=== PATIENT | male | born 1950 | race Caucasian/White ===

== ENCOUNTER 2018-08-23 23:42 | Inpatient (IN) | payer OTHER, MEDICARE ==
[~2018-08-23] VITALS: Ht 182.9 cm; Wt 99.1 kg
[~2018-08-23 23:42] MED LIST: ALBU8HFA2 INH; ASPI81EC PO; AZIT250 PO; Abilify2 MG PO; CLINGEL TOP; CYCL10 PO; DOXE25 PO; FURO40 PO; LAVAP17G PO; METH10 PO; OXYC5 PO; PRAZ2 PO; PREG100 PO; SILD50TA PO; TESTOSTERONE INJECT; TRAM50 PO; TRAZ50 PO; Ultram50 MG PO; VENL150ER PO; VENL75ER PO; ZOLP10 PO
[2018-08-24 01:36] LABS: BASOPHILS ABSOLUTE AUTO 0.08 K/mm3 (0.00-0.23); BASOPHILS PERCENT AUTO 1 % (0-2); EOSINOPHILS ABSOLUTE AUTO 0.19 K/mm3 (0.00-0.68); EOSINOPHILS PERCENT AUTO 2 % (0-6); Hematocrit 45.7 % (37.0-53.0); Hemoglobin 15.4 g/dL (13.5-17.5); IMMATURE GRAN ABSOLUTE AUTO 0.03 K/mm3 (0.00-0.10); IMMATURE GRAN PERCENT AUTO 0 % (0-1); LYMPHOCYTES ABSOLUTE AUTO 2.98 K/mm3 (0.84-5.20); LYMPHOCYTES PERCENT AUTO 26 % (21-46); MONOCYTES ABSOLUTE AUTO 1.06 K/mm3 (0.16-1.47); MONOCYTES PERCENT AUTO 9 % (4-13); Mean Corpuscular HGB 32.4 pg (26.0-34.0); Mean Corpuscular HGB Conc 33.7 g/dL (31.5-36.5); Mean Corpuscular Volume 96 fL (80-100); Mean Platelet Volume 11.6 fL (9.1-12.4); NEUTROPHILS ABSOLUTE AUTO 7.24 K/mm3 (1.96-9.15); NEUTROPHILS PERCENT AUTO 63 % (41-73); Platelet Count 196 K/mm3 (150-400); RDW Coefficient Variation 12.3 % (11.7-14.2); RDW Standard Deviation 44.1 fL (35.1-46.3); Red Blood Cell Count 4.75 M/mm3 (4.30-5.90); White Blood Cell Count 11.58 K/mm3 (4.00-11.30)
[2018-08-24 01:54] LABS: Alanine Aminotransfer (ALT/SGP 59 U/L (12-78); Albumin, Blood 3.7 g/dL (3.4-5.0); Albumin/Globulin Ratio 0.9 (0.8-1.8); Alk Phos 66 U/L (50-136); Anion Gap 9 mmol/L (6-16); Aspartate Aminotrans (AST/SGOT 63 U/L (12-37); Bilirubin, Total 1.6 mg/dL (0.1-1.0); Blood Urea Nitrogen 13 mg/dL (8-24); Bun/Creatinine Ratio 16.5 (12.0-20.0); CO2, Blood 29 mmol/L (21-32); Calcium, Blood 8.5 mg/dL (8.5-10.1); Chloride, Blood 100 mmol/L (98-108); Creatinine, Blood 0.79 mg/dL (0.60-1.20); Glomerular Filtration Rate >60 (60-); Glucose, Blood 104 mg/dL (70-99); Sodium, Blood 138 mmol/L (136-145); Total Protein, Blood 7.7 g/dL (6.4-8.2)
[2018-08-24] MEDS ORDERED: ACET325 PO (10:36)
[2018-08-24] MEDS ORDERED: ALBU90OI INH (10:37)
[2018-08-24] MEDS ORDERED: CAVERJECT (10:40)
[2018-08-24] MEDS ORDERED: BIOTENE MOIST44.3 ML MT (10:41)
[2018-08-24] MEDS ORDERED: Tears Again15 ML BOTHEYES (10:42)
[2018-08-24] MEDS ORDERED: VITAMIN D-32000 UNIT PO (10:43)
[2018-08-24] MEDS ORDERED: CLOTRIMAZOLE AF1510 (10:47)
[2018-08-24] MEDS ORDERED: CYCL10 PO (10:49)
[2018-08-24] MEDS ORDERED: DULO30 PO (10:51)
[2018-08-24] MEDS ORDERED: HYDCHL25 PO (10:53)
[2018-08-24] MEDS ORDERED: HYDR454TO TOP (10:54)
[2018-08-24] MEDS ORDERED: Atarax10 MG PO (10:57)
[2018-08-24] MEDS ORDERED: Hydroxyzine HCl50 MG PO (10:58)
[2018-08-24] MEDS ORDERED: LIDO700A20 TOP (11:00)
[2018-08-24] MEDS ORDERED: GAVILAX17 GM PO (11:10)
[2018-08-24] MEDS ORDERED: PREG200 PO (11:11)
[2018-08-24] MEDS ORDERED: PRAZ2 PO (11:11)
[2018-08-24] MEDS ORDERED: QUET25 PO (11:12)
[2018-08-24] MEDS ORDERED: VARE1 PO (11:14)
[2018-08-24 14:38] LABS: Hematocrit 42.8 % (37.0-53.0); Hemoglobin 14.3 g/dL (13.5-17.5); Mean Corpuscular HGB 32.6 pg (26.0-34.0); Mean Corpuscular HGB Conc 33.4 g/dL (31.5-36.5); Mean Corpuscular Volume 98 fL (80-100); Mean Platelet Volume 11.7 fL (9.1-12.4); Platelet Count 147 K/mm3 (150-400); RDW Coefficient Variation 12.3 % (11.7-14.2); RDW Standard Deviation 44.6 fL (35.1-46.3); Red Blood Cell Count 4.39 M/mm3 (4.30-5.90); White Blood Cell Count 7.54 K/mm3 (4.00-11.30)
[2018-08-24 15:06] LABS: Alanine Aminotransfer (ALT/SGP 48 U/L (12-78); Albumin, Blood 2.8 g/dL (3.4-5.0); Albumin/Globulin Ratio 0.8 (0.8-1.8); Alk Phos 54 U/L (50-136); Anion Gap 9 mmol/L (6-16); Aspartate Aminotrans (AST/SGOT 39 U/L (12-37); Blood Urea Nitrogen 14 mg/dL (8-24); Bun/Creatinine Ratio 22.7 (12.0-20.0); CO2, Blood 25 mmol/L (21-32); Calcium, Blood 7.7 mg/dL (8.5-10.1); Chloride, Blood 106 mmol/L (98-108); Creatinine, Blood 0.62 mg/dL (0.60-1.20); Globulin, Blood 3.7 g/dL (2.2-4.0); Glomerular Filtration Rate >60 (60-); Glucose, Blood 155 mg/dL (70-99); Potassium, Blood 3.4 mmol/L (3.5-5.5); Sodium, Blood 140 mmol/L (136-145); Total Protein, Blood 6.5 g/dL (6.4-8.2)
[2018-08-25 05:27] LABS: Vancomycin, Trough 10.5 ug/mL (5.0-10.0)
[2018-08-26 05:26] LABS: Hematocrit 42.1 % (37.0-53.0); Hemoglobin 13.6 g/dL (13.5-17.5); Mean Corpuscular HGB 32.6 pg (26.0-34.0); Mean Corpuscular HGB Conc 32.3 g/dL (31.5-36.5); Platelet Count 149 K/mm3 (150-400); RDW Coefficient Variation 12.5 % (11.7-14.2); RDW Standard Deviation 46.7 fL (35.1-46.3); Red Blood Cell Count 4.17 M/mm3 (4.30-5.90); White Blood Cell Count 8.22 K/mm3 (4.00-11.30)
[2018-08-26 05:33] LABS: Mean Corpuscular Volume 101 fL (80-100)
[2018-08-26 05:42] LABS: Anion Gap 7 mmol/L (6-16); Blood Urea Nitrogen 17 mg/dL (8-24); Bun/Creatinine Ratio 26.1 (12.0-20.0); CO2, Blood 23 mmol/L (21-32); Calcium, Blood 7.8 mg/dL (8.5-10.1); Chloride, Blood 110 mmol/L (98-108); Creatinine, Blood 0.65 mg/dL (0.60-1.20); Glomerular Filtration Rate >60 (60-); Glucose, Blood 128 mg/dL (70-99); Potassium, Blood 3.8 mmol/L (3.5-5.5); Sodium, Blood 140 mmol/L (136-145); Vancomycin, Trough 17.1 ug/mL (5.0-10.0)
[2018-08-27 06:04] LABS: Vancomycin, Trough 16.2 ug/mL (5.0-10.0)
[2018-08-29 06:18] LABS: Vancomycin, Trough 20.6 ug/mL (5.0-10.0)
[2018-08-30 17:26] LABS: Creatinine, Blood 0.81 mg/dL (0.60-1.20); Vancomycin, Trough 16.7 ug/mL (5.0-10.0)
[2018-08-31] MEDS ORDERED: TRAM50 PO (12:07)
== END 2018-08-31 14:10 | disposition home or self-care (01) | DRG 603 ==
LOC: ER 23:42 → MEDS 08-24 01:18 → ER 08-24 01:45 → MEDS 08-24 02:24 → ENPENDDIS 08-31 14:10
PROVIDERS: Emergency Medicine; Internal Medicine
PROC: 0H9GXZX Drainage of Left Hand Skin, External Approach, Diagnostic (ICD-10-PCS; principal; 2018-08-29)
DX: L03.114 Cellulitis of left upper limb (principal); L02.512 Cutaneous abscess of left hand; F32.9 Major depressive disorder, single episode, unspecified; B19.20 Unspecified viral hepatitis C without hepatic coma; F17.210 Nicotine dependence, cigarettes, uncomplicated; F43.10 Post-traumatic stress disorder, unspecified; F15.10 Other stimulant abuse, uncomplicated; E87.6 Hypokalemia
CPT/HCPCS: 36415; 73201; 76882; 80048; 80053; 80202; 82565; 83605; 85025; 85027; 87040; 87070; 87075; 87205; 90471; 90714; 93306; 94640; 94760; 96365; 96375; 99284-25; J0295; J1650; J1885; J2543; J2930; J3010; J3370; J3480; J7030; J7050; Q0177; Q9967

== ENCOUNTER 2019-08-13 11:34 | Emergency (ER) | payer OTHER ==
[~2019-08-13] VITALS: Ht 188 cm; Wt 101.6 kg
[~2019-08-13 11:34] MED LIST changes: +ACET325 PO; +ALBU90OI INH; +Atarax10 MG PO; +BIOTENE MOIST44.3 ML MT; +CAVERJECT; +CLOTRIMAZOLE AF1510; +DULO30 PO; +GAVILAX17 GM PO; +HYDCHL25 PO; +HYDR454TO TOP; +Hydroxyzine HCl50 MG PO; +LIDO700A20 TOP; +PREG200 PO; +QUET25 PO; +Tears Again15 ML BOTHEYES; +VARE1 PO; +VITAMIN D-32000 UNIT PO
== END 2019-08-13 14:32 | disposition home or self-care (01) ==
LOC: ER 11:34
DX: M75.32 Calcific tendinitis of left shoulder (principal); F32.9 Major depressive disorder, single episode, unspecified; G89.29 Other chronic pain; F17.200 Nicotine dependence, unspecified, uncomplicated; Z91.013 Allergy to seafood; Z88.1 Allergy status to other antibiotic agents; Z88.8 Allergy status to other drugs, medicaments and biological substances; Z79.899 Other long term (current) drug therapy
CPT/HCPCS: 20610; 73030; 99283-25; J3301

== ENCOUNTER 2019-09-14 16:37 | Emergency (ER) | payer OTHER ==
[~2019-09-14] VITALS: Ht 190.5 cm; Wt 102.1 kg
[2019-09-14] MEDS ORDERED: MELA3 PO (16:52)
[2019-09-14 17:40] LABS: Source, Urine Clean Catch
[2019-09-14 17:44] LABS: Bilirubin, Urine Neg (Neg); Blood, Urine Neg (Neg); Glucose Qualitative, Urine Neg (Neg); Ketones, Urine 1+ (Neg); Leukocyte Esterase, Urine 1+ (Neg); Nitrite, Urine Neg (Neg); Protein, Urine 1+ (Neg); Specific Gravity, Urine 1.015 (1.003-1.022); Urobilinogen, Urine 1+ (Normal)
[2019-09-14 17:44] LABS: BASOPHILS ABSOLUTE AUTO 0.06 K/mm3 (0.00-0.23); BASOPHILS PERCENT AUTO 1 % (0-2); EOSINOPHILS ABSOLUTE AUTO 0.19 K/mm3 (0.00-0.68); EOSINOPHILS PERCENT AUTO 3 % (0-6); Hemoglobin 15.7 g/dL (13.5-17.5); IMMATURE GRAN ABSOLUTE AUTO 0.02 K/mm3 (0.00-0.10); IMMATURE GRAN PERCENT AUTO 0 % (0-1); LYMPHOCYTES ABSOLUTE AUTO 2.44 K/mm3 (0.84-5.20); LYMPHOCYTES PERCENT AUTO 32 % (21-46); MONOCYTES ABSOLUTE AUTO 0.66 K/mm3 (0.16-1.47); MONOCYTES PERCENT AUTO 9 % (4-13); Mean Corpuscular HGB 33.1 pg (26.0-34.0); Mean Corpuscular HGB Conc 34.1 g/dL (31.5-36.5); Mean Corpuscular Volume 97 fL (80-100); NEUTROPHILS ABSOLUTE AUTO 4.25 K/mm3 (1.96-9.15); NEUTROPHILS PERCENT AUTO 56 % (41-73); Platelet Count 246 K/mm3 (150-400); RDW Coefficient Variation 12.9 % (11.7-14.2); RDW Standard Deviation 46.2 fL (35.1-46.3); Red Blood Cell Count 4.75 M/mm3 (4.30-5.90); White Blood Cell Count 7.62 K/mm3 (4.00-11.30)
[2019-09-14 17:54] LABS: U Cannabinoids Screen DETECTED
[2019-09-14 17:55] LABS: Appearance, Urine Clear (Clear); Color, Urine Yellow (P-Yellow); U Amphetamine Screen Not Detected; U Barbituate Screen Not Detected; U Benzodiazapine Screen Not Detected; U Buprenorphine Screen Not Detected; U Cocaine Screen Not Detected; U Methadone Screen Not Detected; U Methamphetamine Screen Not Detected; U Opiates Screen Not Detected; U Oxycodone Screen Not Detected; U Phencyclidine Screen Not Detected; U Propoxyphene Screen Not Detected
[2019-09-14 17:56] LABS: Bacteria Few /hpf; Mucus Light (0-Heavy); Red Blood Cells, Urine 0-2 /hpf (0-2); Squamous Epithelial Cells Not Seen /hpf (Few)
[2019-09-14 17:59] LABS: Alanine Aminotransfer (ALT/SGP 68 U/L (12-78); Albumin, Blood 3.8 g/dL (3.4-5.0); Albumin/Globulin Ratio 1.1 (0.8-1.8); Alk Phos 74 U/L (50-136); Anion Gap 8 mmol/L (6-16); Aspartate Aminotrans (AST/SGOT 33 U/L (12-37); Bilirubin, Total 0.6 mg/dL (0.1-1.0); Blood Urea Nitrogen 23 mg/dL (8-24); Bun/Creatinine Ratio 30.2 (12.0-20.0); CO2, Blood 21 mmol/L (21-32); Calcium, Blood 8.2 mg/dL (8.5-10.1); Chloride, Blood 108 mmol/L (98-108); Creatinine, Blood 0.76 mg/dL (0.60-1.20); Globulin, Blood 3.5 g/dL (2.2-4.0); Glomerular Filtration Rate >60 (60-); Glucose, Blood 92 mg/dL (70-99); Magnesium, Blood 2.2 mg/dL (1.6-2.4); Potassium, Blood 4.1 mmol/L (3.5-5.5); Sodium, Blood 137 mmol/L (136-145); Total Protein, Blood 7.3 g/dL (6.4-8.2)
== END 2019-09-14 19:08 | disposition home or self-care (01) ==
LOC: ER 16:37
PROVIDERS: Emergency Medicine
DX: R10.9 Unspecified abdominal pain (principal); Z88.5 Allergy status to narcotic agent; Z88.8 Allergy status to other drugs, medicaments and biological substances; Z91.013 Allergy to seafood; Z88.1 Allergy status to other antibiotic agents; Z79.899 Other long term (current) drug therapy; F32.9 Major depressive disorder, single episode, unspecified; F43.10 Post-traumatic stress disorder, unspecified; F17.210 Nicotine dependence, cigarettes, uncomplicated
CPT/HCPCS: 36415; 74176; 80053; 81001; 83735; 85025; 87086; 99284-25

== ENCOUNTER 2020-01-06 12:19 | Emergency (ER) | payer OTHER, MEDICARE ==
[~2020-01-06] VITALS: Ht 190.5 cm; Wt 102.1 kg
[~2020-01-06 12:19] MED LIST changes: +MELA3 PO
[2020-01-06 13:00] LABS: BASOPHILS ABSOLUTE AUTO 0.08 K/mm3 (0.00-0.23); BASOPHILS PERCENT AUTO 1 % (0-2); EOSINOPHILS ABSOLUTE AUTO 0.18 K/mm3 (0.00-0.68); EOSINOPHILS PERCENT AUTO 3 % (0-6); Hematocrit 53.3 % (37.0-53.0); Hemoglobin 18.1 g/dL (13.5-17.5); IMMATURE GRAN PERCENT AUTO 0 % (0-1); LYMPHOCYTES ABSOLUTE AUTO 2.49 K/mm3 (0.84-5.20); LYMPHOCYTES PERCENT AUTO 41 % (21-46); MONOCYTES PERCENT AUTO 10 % (4-13); Mean Corpuscular HGB 32.6 pg (26.0-34.0); Mean Corpuscular Volume 96 fL (80-100); Mean Platelet Volume 11.7 fL (9.1-12.4); NEUTROPHILS ABSOLUTE AUTO 2.74 K/mm3 (1.96-9.15); NEUTROPHILS PERCENT AUTO 45 % (41-73); Platelet Count 239 K/mm3 (150-400); RDW Coefficient Variation 13.2 % (11.7-14.2); RDW Standard Deviation 47.1 fL (35.1-46.3); Red Blood Cell Count 5.56 M/mm3 (4.30-5.90); White Blood Cell Count 6.09 K/mm3 (4.00-11.30)
[2020-01-06 13:19] LABS: Alanine Aminotransfer (ALT/SGP 66 U/L (12-78); Albumin, Blood 3.7 g/dL (3.4-5.0); Anion Gap 5 mmol/L (6-16); Aspartate Aminotrans (AST/SGOT 59 U/L (12-37); Bilirubin, Total 0.6 mg/dL (0.1-1.0); Blood Urea Nitrogen 21 mg/dL (8-24); CO2, Blood 22 mmol/L (21-32); Calcium, Blood 8.9 mg/dL (8.5-10.1); Chloride, Blood 112 mmol/L (98-108); Globulin, Blood 3.7 g/dL (2.2-4.0); Glucose, Blood 96 mg/dL (70-99); Potassium, Blood 4.5 mmol/L (3.5-5.5); Sodium, Blood 139 mmol/L (136-145); Total Protein, Blood 7.4 g/dL (6.4-8.2)
[2020-01-06 13:23] LABS: Alk Phos 74 U/L (50-136); Creatinine, Blood 0.64 mg/dL (0.60-1.20); Glomerular Filtration Rate >60 (60-); Troponin I <0.015 ng/mL (0.000-0.040)
[2020-01-06] MEDS ORDERED: Prednisone20 MG PO (14:47)
[2020-01-06] MEDS ORDERED: TESSALON PERLE100 MG PO (14:47)
[2020-01-06] MEDS ORDERED: GUAI600T33 PO (14:47)
== END 2020-01-06 15:07 | disposition home or self-care (01) ==
LOC: ER 12:19
PROVIDERS: Emergency Medicine
DX: J40 Bronchitis, not specified as acute or chronic (principal); I48.91 Unspecified atrial fibrillation; F32.9 Major depressive disorder, single episode, unspecified; F17.200 Nicotine dependence, unspecified, uncomplicated; Z88.8 Allergy status to other drugs, medicaments and biological substances; Z91.013 Allergy to seafood; Z79.899 Other long term (current) drug therapy; Z79.51 Long term (current) use of inhaled steroids
CPT/HCPCS: 36415; 71046; 80053; 84484; 85025; 93005; 93010; 99284-25

== ENCOUNTER 2021-02-10 11:34 | Emergency (ER) | payer OTHER, MEDICARE ==
[~2021-02-10] VITALS: Ht 190.5 cm; Wt 109.3 kg
[~2021-02-10 11:34] MED LIST changes: +GUAI600T33 PO; +METO25ER PO; +OMEP20ER PO; +Prednisone20 MG PO; +TESSALON PERLE100 MG PO; +XARELTO20 MG PO
[2021-02-10] MEDS ORDERED: HYDHCL25 PO (11:55)
[2021-02-10] MEDS ORDERED: PRAZ5 PO (11:55)
[2021-02-10] MEDS ORDERED: LIDO700A20 TOP (12:17)
== END 2021-02-10 12:34 | disposition home or self-care (01) ==
LOC: ER 11:34
DX: S29.011A Strain of muscle and tendon of front wall of thorax, initial encounter (principal); F17.210 Nicotine dependence, cigarettes, uncomplicated; Z79.01 Long term (current) use of anticoagulants; Z79.899 Other long term (current) drug therapy; Z88.8 Allergy status to other drugs, medicaments and biological substances; Z88.5 Allergy status to narcotic agent; Z88.1 Allergy status to other antibiotic agents; Z91.013 Allergy to seafood; X58.XXXA Exposure to other specified factors, initial encounter
CPT/HCPCS: 71046; 99283-25

== ENCOUNTER 2021-04-12 10:59 | Emergency (ER) | payer MEDICARE, OTHER ==
[~2021-04-12] VITALS: Ht 188 cm; Wt 109.3 kg
[~2021-04-12 10:59] MED LIST changes: +HYDHCL25 PO; +PRAZ5 PO
[2021-04-12] MEDS ORDERED: CYCL10 PO (13:47)
[2021-04-12] MEDS ORDERED: IBUP600 PO (13:47)
== END 2021-04-12 14:16 | disposition home or self-care (01) ==
LOC: ER 10:59
DX: M54.5 Low back pain (principal); F17.210 Nicotine dependence, cigarettes, uncomplicated; Z88.1 Allergy status to other antibiotic agents; Z88.8 Allergy status to other drugs, medicaments and biological substances; Z79.899 Other long term (current) drug therapy
CPT/HCPCS: 72100; 96372; 99283-25; A9270; J1885

== ENCOUNTER 2021-05-13 12:13 | Emergency (ER) | payer OTHER, MEDICARE ==
[~2021-05-13] VITALS: Ht 188 cm; Wt 109.3 kg
[~2021-05-13 12:13] MED LIST changes: +IBUP600 PO
[2021-05-13] MEDS ORDERED: CYCL10 PO (14:38)
[2021-05-13] MEDS ORDERED: LIDO700A20 TOP (14:38)
== END 2021-05-13 14:45 | disposition home or self-care (01) ==
LOC: ER 12:13
DX: S39.012A Strain of muscle, fascia and tendon of lower back, initial encounter (principal); F17.210 Nicotine dependence, cigarettes, uncomplicated; Z88.5 Allergy status to narcotic agent; Z88.8 Allergy status to other drugs, medicaments and biological substances; Z88.6 Allergy status to analgesic agent; X50.9XXA Other and unspecified overexertion or strenuous movements or postures, initial encounter
CPT/HCPCS: 96374; 99283-25; A9270; J1885

== ENCOUNTER 2022-04-17 09:23 | Emergency (ER) | payer OTHER ==
[~2022-04-17] VITALS: Ht 188 cm; Wt 102.1 kg
[2022-04-17 09:49] LABS: BASOPHILS ABSOLUTE AUTO 0.06 K/mm3 (0.00-0.23); BASOPHILS PERCENT AUTO 1 % (0-2); EOSINOPHILS ABSOLUTE AUTO 0.12 K/mm3 (0.00-0.68); EOSINOPHILS PERCENT AUTO 2 % (0-6); Hematocrit 48.2 % (37.0-53.0); Hemoglobin 16.6 g/dL (13.5-17.5); IMMATURE GRAN ABSOLUTE AUTO 0.02 K/mm3 (0.00-0.10); IMMATURE GRAN PERCENT AUTO 0 % (0-1); LYMPHOCYTES ABSOLUTE AUTO 3.06 K/mm3 (0.84-5.20); LYMPHOCYTES PERCENT AUTO 39 % (21-46); MONOCYTES ABSOLUTE AUTO 0.71 K/mm3 (0.16-1.47); MONOCYTES PERCENT AUTO 9 % (4-13); Mean Corpuscular HGB 31.6 pg (26.0-34.0); Mean Corpuscular HGB Conc 34.4 g/dL (31.5-36.5); Mean Corpuscular Volume 92 fL (80-100); Mean Platelet Volume 11.4 fL (9.1-12.4); NEUTROPHILS ABSOLUTE AUTO 3.96 K/mm3 (1.96-9.15); NEUTROPHILS PERCENT AUTO 50 % (41-73); Platelet Count 228 K/mm3 (150-400); RDW Standard Deviation 47.7 fL (35.1-46.3); Red Blood Cell Count 5.25 M/mm3 (4.30-5.90); White Blood Cell Count 7.93 K/mm3 (4.00-11.30)
[2022-04-17 10:10] LABS: Albumin, Blood 4.2 g/dL (3.4-5.0); Albumin/Globulin Ratio 1.1 (0.8-1.8); Bilirubin, Total 0.6 mg/dL (0.1-1.0); Bun/Creatinine Ratio 16.1 (12.0-20.0); Calcium, Blood 9.3 mg/dL (8.5-10.1); Creatinine, Blood 0.81 mg/dL (0.60-1.20); Globulin, Blood 3.8 g/dL (2.2-4.0); Potassium, Blood 3.7 mmol/L (3.5-5.5)
[2022-04-17] MEDS ORDERED: Prednisone20 MG PO (11:50)
[2022-04-17] MEDS ORDERED: Zithromax250 MG PO (11:50)
== END 2022-04-17 12:08 | disposition home or self-care (01) ==
LOC: ER 09:23
PROVIDERS: Emergency Medicine
DX: J44.1 Chronic obstructive pulmonary disease with (acute) exacerbation (principal); F43.10 Post-traumatic stress disorder, unspecified; I10 Essential (primary) hypertension; Z88.8 Allergy status to other drugs, medicaments and biological substances; Z88.5 Allergy status to narcotic agent; Z88.1 Allergy status to other antibiotic agents; Z79.899 Other long term (current) drug therapy; F17.210 Nicotine dependence, cigarettes, uncomplicated
CPT/HCPCS: 71045; 80053; 83880; 84484; 85025; 93005; 93010; 99285-25; A9270

== ENCOUNTER 2022-12-09 23:47 | Emergency (ER) | payer OTHER ==
[~2022-12-09] VITALS: Ht 188 cm; Wt 102.1 kg
[~2022-12-09 23:47] MED LIST changes: +Zithromax250 MG PO
[2022-12-09] MEDS ORDERED: Prednisone20 MG PO (23:56)
== END 2022-12-10 01:40 | disposition home or self-care (01) ==
LOC: ER 23:47
DX: J44.1 Chronic obstructive pulmonary disease with (acute) exacerbation (principal); J06.9 Acute upper respiratory infection, unspecified; I10 Essential (primary) hypertension; F17.210 Nicotine dependence, cigarettes, uncomplicated; Z88.8 Allergy status to other drugs, medicaments and biological substances; Z88.5 Allergy status to narcotic agent; Z79.899 Other long term (current) drug therapy
CPT/HCPCS: J7512

== ENCOUNTER 2023-02-12 02:58 | Emergency (ER) | payer OTHER ==
[~2023-02-12] VITALS: Ht 188 cm; Wt 110.7 kg
== END 2023-02-12 03:41 | disposition home or self-care (01) ==
LOC: ER 02:58
DX: F45.8 Other somatoform disorders (principal); J44.9 Chronic obstructive pulmonary disease, unspecified; F17.210 Nicotine dependence, cigarettes, uncomplicated; Z88.5 Allergy status to narcotic agent; Z88.8 Allergy status to other drugs, medicaments and biological substances; Z79.899 Other long term (current) drug therapy; Z79.02 Long term (current) use of antithrombotics/antiplatelets
CPT/HCPCS: 70360; 71045; 99283-25; A9270

== ENCOUNTER → 2023-06-25 | Outpatient (CLI) | payer OTHER ==
[2023-06-25 14:09] LABS: Appearance, Urine Clear (Clear); Bilirubin, Urine Neg (Neg); Blood, Urine 1+ (Neg); Color, Urine Yellow (P-Yellow); Glucose Qualitative, Urine Neg (Neg); Ketones, Urine Neg (Neg); Leukocyte Esterase, Urine Neg (Neg); Nitrite, Urine Neg (Neg); Protein, Urine Neg (Neg); Urobilinogen, Urine NORM (Normal)
[2023-06-25 14:26] LABS: Bacteria Few /hpf; Squamous Epithelial Cells Rare /hpf (Few); White Blood Cells, Urine 0-2 /hpf (0-5)
== END | disposition home or self-care (01) ==
LOC: LAB 11:00 → LAB SHORT 11:00
PROVIDERS: Radiology Therapeutic Radiology
DX: C61 Malignant neoplasm of prostate (principal); R31.9 Hematuria, unspecified
CPT/HCPCS: 81001

== ENCOUNTER 2023-07-07 08:51 | Emergency (ER) | payer OTHER ==
[~2023-07-07] VITALS: Ht 188 cm; Wt 108.0 kg
[2023-07-07 09:13] LABS: BASOPHILS ABSOLUTE AUTO 0.02 K/mm3 (0.00-0.23); BASOPHILS PERCENT AUTO 0 % (0-2); EOSINOPHILS ABSOLUTE AUTO 0.09 K/mm3 (0.00-0.68); EOSINOPHILS PERCENT AUTO 2 % (0-6); Hematocrit 43.6 % (37.0-53.0); Hemoglobin 14.9 g/dL (13.5-17.5); IMMATURE GRAN ABSOLUTE AUTO 0.02 K/mm3 (0.00-0.10); IMMATURE GRAN PERCENT AUTO 0 % (0-1); LYMPHOCYTES ABSOLUTE AUTO 0.36 K/mm3 (0.84-5.20); LYMPHOCYTES PERCENT AUTO 7 % (21-46); MONOCYTES ABSOLUTE AUTO 0.67 K/mm3 (0.16-1.47); MONOCYTES PERCENT AUTO 13 % (4-13); Mean Corpuscular HGB 31.4 pg (26.0-34.0); Mean Corpuscular HGB Conc 34.2 g/dL (31.5-36.5); Mean Corpuscular Volume 92 fL (80-100); Mean Platelet Volume 10.2 fL (9.1-12.4); NEUTROPHILS ABSOLUTE AUTO 4.16 K/mm3 (1.96-9.15); NEUTROPHILS PERCENT AUTO 78 % (41-73); Platelet Count 192 K/mm3 (150-400); RDW Coefficient Variation 14.1 % (11.7-14.2); RDW Standard Deviation 47.6 fL (35.1-46.3); Red Blood Cell Count 4.75 M/mm3 (4.30-5.90); White Blood Cell Count 5.32 K/mm3 (4.00-11.30)
[2023-07-07 09:25] LABS: Albumin, Blood 3.1 g/dL (3.4-5.0); Albumin/Globulin Ratio 0.9 (0.8-1.8); Bilirubin, Total 0.3 mg/dL (0.1-1.0); Bun/Creatinine Ratio 16.4 (12.0-20.0); Calcium, Blood 8.3 mg/dL (8.5-10.1); Creatinine, Blood 0.97 mg/dL (0.60-1.20); Globulin, Blood 3.3 g/dL (2.2-4.0); Total Protein, Blood 6.4 g/dL (6.4-8.2)
[2023-07-07 09:32] LABS: BAND PERCENT MAN 1 % (0-8); BASOPHILS PERCENT MAN 0 % (0-2); EOSINOPHILS PERCENT MAN 2 % (0-6); LYMPHOCYTES ABSOLUTE MAN 0.37 K/mm3 (0.84-5.20); LYMPHOCYTES PERCENT MAN 7 % (21-46); MONOCYTES ABSOLUTE MAN 0.31 K/mm3 (0.16-1.47); MONOCYTES PERCENT MAN 6 % (4-13); NEUTROPHILS ABSOLUTE MAN 4.52 K/mm3 (1.96-9.15); SEG NEUTROPHILS PERCENT MAN 84 % (41-73); TOTAL CELLS COUNTED 100
[2023-07-07 10:53] VITALS: BP 116/78
== END 2023-07-07 10:53 | disposition home or self-care (01) ==
LOC: ER 08:51
PROVIDERS: Emergency Medicine
DX: K62.5 Hemorrhage of anus and rectum (principal); F17.210 Nicotine dependence, cigarettes, uncomplicated
CPT/HCPCS: 80053; 82272; 85025; 86850; 86900; 86901; 93005; 93010; 99284-25

== ENCOUNTER 2024-08-25 09:32 | Inpatient (IN) | payer OTHER ==
[~2024-08-25] VITALS: Ht 188 cm; Wt 91.3 kg
[~2024-08-25 09:32] MED LIST changes: +METO25 PO
[2024-08-25] MEDS ORDERED: NS 1,000 ML IV SCH ×2 (10:00→12:35)
[2024-08-25] MEDS ORDERED: Pantoprazole Sodium 40 MG Injection IV ONE (10:00)
[2024-08-25 10:06] LABS: BASOPHILS ABSOLUTE AUTO 0.05 K/mm3 (0.00-0.23); BASOPHILS PERCENT AUTO 1 % (0-2); EOSINOPHILS ABSOLUTE AUTO 0.19 K/mm3 (0.00-0.68); EOSINOPHILS PERCENT AUTO 4 % (0-6); Hematocrit 38.7 % (37.0-53.0); Hemoglobin 12.6 g/dL (13.5-17.5); IMMATURE GRAN ABSOLUTE AUTO 0.02 K/mm3 (0.00-0.10); IMMATURE GRAN PERCENT AUTO 0 % (0-1); LYMPHOCYTES ABSOLUTE AUTO 0.93 K/mm3 (0.84-5.20); LYMPHOCYTES PERCENT AUTO 20 % (21-46); MONOCYTES ABSOLUTE AUTO 0.48 K/mm3 (0.16-1.47); MONOCYTES PERCENT AUTO 10 % (4-13); Mean Corpuscular HGB Conc 32.6 g/dL (31.5-36.5); Mean Corpuscular Volume 95 fL (80-100); Mean Platelet Volume 10.1 fL (9.1-12.4); NEUTROPHILS ABSOLUTE AUTO 3.06 K/mm3 (1.96-9.15); NEUTROPHILS PERCENT AUTO 65 % (41-73); Platelet Count 256 K/mm3 (150-400); RDW Coefficient Variation 14.2 % (11.7-14.2); RDW Standard Deviation 50.3 fL (35.1-46.3); Red Blood Cell Count 4.07 M/mm3 (4.30-5.90); White Blood Cell Count 4.73 K/mm3 (4.00-11.30)
[2024-08-25] MEDS ORDERED: ACET325 PO (10:07)
[2024-08-25] MEDS ORDERED: LIDO700A20 TOP (10:08)
[2024-08-25] MEDS ORDERED: CYCL10 PO (10:08)
[2024-08-25] MEDS ORDERED: MEGE40T PO (10:09)
[2024-08-25] MEDS ORDERED: SIME80CH PO (10:09)
[2024-08-25] MEDS ORDERED: ALFU10 PO (10:09)
[2024-08-25] MEDS ORDERED: VENLAFAXINE HCL75 M1 PO (10:10)
[2024-08-25] MEDS ORDERED: MIRT15 PO (10:10)
[2024-08-25] MEDS ORDERED: ABILIFY MYCITE10 M2 PO (10:10)
[2024-08-25] MEDS ORDERED: Atarax10 MG PO (10:11)
[2024-08-25 10:24] LABS: International Normalized Ratio 0.99; Prothrombin Time Results 10.6 Sec (9.7-11.5)
[2024-08-25 10:52] LABS: Albumin, Blood 3.4 g/dL (3.4-5.0); Bilirubin, Total 0.2 mg/dL (0.1-1.0); Bun/Creatinine Ratio 32.3 (12.0-20.0); Calcium, Blood 8.9 mg/dL (8.5-10.1); Creatinine, Blood 0.81 mg/dL (0.60-1.20); Globulin, Blood 3.3 g/dL (2.2-4.0); Potassium, Blood 4.4 mmol/L (3.5-5.5); Total Protein, Blood 6.7 g/dL (6.4-8.2)
[2024-08-25 11:01] LABS: Source, Urine Clean Catch
[2024-08-25 11:17] LABS: Appearance, Urine Clear (Clear); Bilirubin, Urine Neg (Neg); Blood, Urine Neg (Neg); Color, Urine Yellow (P-Yellow); Glucose Qualitative, Urine Neg (Neg); Ketones, Urine Neg (Neg); Leukocyte Esterase, Urine Neg (Neg); Nitrite, Urine Neg (Neg); Protein, Urine Neg (Neg); Specific Gravity, Urine 1.015 (1.003-1.022); Urobilinogen, Urine NORM (Normal)
[2024-08-25] MEDS ORDERED: FLU VACC TS2024-25(6MOS UP)/PF 45 MCG/0.5 ML SYRINGE IM SCH (12:35)
[2024-08-25] MEDS ORDERED: Acetaminophen 325 MG TABLET PO PRN (12:35)
[2024-08-25] MEDS ORDERED: Ondansetron HCl 2 MG / ML 2ML Vial IV PRN (12:35)
[2024-08-25] MEDS ORDERED: LORazepam 0.5 MG Tab PO PRN (12:35)
[2024-08-25] MEDS ORDERED: Peg/Electrolytes 4,000 ML BTL PO ONE (15:00)
[2024-08-25 15:20] VITALS: BP 157/77
[2024-08-25 15:33] LABS: Hematocrit 41.9 % (37.0-53.0); Hemoglobin 13.7 g/dL (13.5-17.5); Mean Corpuscular HGB 31.1 pg (26.0-34.0); Mean Corpuscular HGB Conc 32.7 g/dL (31.5-36.5); Mean Corpuscular Volume 95 fL (80-100); Mean Platelet Volume 9.8 fL (9.1-12.4); Platelet Count 246 K/mm3 (150-400); RDW Coefficient Variation 14.4 % (11.7-14.2); RDW Standard Deviation 50.4 fL (35.1-46.3); White Blood Cell Count 4.84 K/mm3 (4.00-11.30)
[2024-08-25] MEDS ORDERED: GABA100 PO ×2 (16:39→16:40)
[2024-08-25] MEDS ORDERED: Nicotine 21 MG PATCH TOP SCH (16:55)
--- NOTE | 2024-08-25 17:52 | NUR ---
PT ADMIT FROM ER. NICOTINE PATCH ORDER OK BY. DR. MCKNIGHT. PT DENIES CHEST PAIN AND PRESSURE, DENIES SOB, R/A. GOLYTELY STARTED. PER DR. CHEN, POTENTIAL PLAN FOR COLONOSCOPY TOMORROW AFTERNOON, PT TO REMAIN ON CLEAR LIQUIDS OVERNIGHT. BLE NEUROPATHY, USE OF FWW OR SCOOTER AT BASELINE. PT ADVISED TO USE FWW. PT IS INDEPENDENT TO THE BATHROOM WITH FWW. CALLS APPROPRIATELY. REPORTS SOME CHECO RED BLOOD IN STOOL FROM RECTUM. IV FLUIDS STARTED.
[2024-08-25] MEDS ORDERED: Tamsulosin HCl 0.4 MG Cap PO SCH (18:00)
[2024-08-25 20:06] VITALS: BP 144/71
[2024-08-25] MEDS ORDERED: Famotidine 10 MG/ML 2ML Vial IV SCH (21:00)
[2024-08-25] MEDS ORDERED: Melatonin 3 MG Tab PO SCH (21:00)
[2024-08-25] MEDS ORDERED: Mirtazapine 15 MG Tab PO SCH (21:00)
[2024-08-25] MEDS ORDERED: Prazosin HCL 5 MG Cap PO SCH (21:00)
[2024-08-26 05:22] VITALS: BP 134/83
[2024-08-26 05:30] LABS: Hematocrit 38.1 % (37.0-53.0); Hemoglobin 12.6 g/dL (13.5-17.5); Mean Corpuscular HGB Conc 33.1 g/dL (31.5-36.5); Mean Corpuscular Volume 94 fL (80-100); Mean Platelet Volume 10.5 fL (9.1-12.4); Platelet Count 230 K/mm3 (150-400); RDW Coefficient Variation 14.2 % (11.7-14.2); RDW Standard Deviation 48.6 fL (35.1-46.3); Red Blood Cell Count 4.07 M/mm3 (4.30-5.90); White Blood Cell Count 4.31 K/mm3 (4.00-11.30)
[2024-08-26 06:01] LABS: Albumin, Blood 3.1 g/dL (3.4-5.0); Anion Gap 10 mmol/L (3-11); Blood Urea Nitrogen 14 mg/dL (8-24); Bun/Creatinine Ratio 19.7 (12.0-20.0); CO2, Blood 25 mmol/L (21-32); Calcium, Blood 8.5 mg/dL (8.5-10.1); Chloride, Blood 113 mmol/L (98-108); Creatinine, Blood 0.71 mg/dL (0.60-1.20); Glomerular Filtration Rate 97 (60-); Glucose, Blood 93 mg/dL (70-99); Magnesium, Blood 2.1 mg/dL (1.6-2.4); Phosphorus, Blood 3.3 mg/dL (2.5-4.9); Potassium, Blood 4.3 mmol/L (3.5-5.5); Sodium, Blood 144 mmol/L (136-145)
[2024-08-26 07:58] VITALS: BP 146/92
[2024-08-26] MEDS ORDERED: ARIPiprazole 10 MG Tab PO SCH (09:00)
[2024-08-26] MEDS ORDERED: Venlafaxine HCl 75 MG CapCR PO SCH (09:00)
[2024-08-26] MEDS ORDERED: Sod Phosphate/Sod Biphosphate 132 ML BTL PR ONE (12:15)
[2024-08-26] MEDS ORDERED: Lactated Ringer's 1,000 ML IV SCH (13:40)
--- NOTE | 2024-08-26 13:57 | NUR ---
PT NPO AT 1300.
[2024-08-26] MEDS ORDERED: Gabapentin 100 MG Cap PO SCH (14:00)
[2024-08-26 14:35] VITALS: BP 153/76
[2024-08-26] MEDS ORDERED: propofoL 20 ML IV ONE (14:54)
[2024-08-26] MEDS ORDERED: Lidocaine HCl 2% 20 ML MDV ONE (14:54)
[2024-08-26] MEDS ORDERED: Ondansetron HCl 2 MG / ML 2ML Vial ONE (14:56)
[2024-08-26] MEDS ORDERED: propofoL 60 ML IV ONE (15:17)
[2024-08-26 15:23] VITALS: BP 163/86
--- NOTE | 2024-08-26 15:27 | NUR ---
FLUSHED RAC IV SITE WITH 5NS/PATENT.
--- NOTE | 2024-08-26 15:45 | NUR ---
08/26/24 1545 Lauri Trotter History, Chart, Medications and Allergies reviewed before start of procedure.MONITOR INTACT WITH CONTINUOUS PULSE OXIMETRY, CONTINUOUS END TITAL CO2, AND INTERMITTENT BLOOD PRESSURE.3-LEAD EKG REVIEWED WITH PHYSICIAN PRIOR TO START OF PROCEDURE.O2 VIA POM INTACT THROUGHOUT SEDATION/PROCEDURE.See Anesthesia record.
--- NOTE | 2024-08-26 16:45 | NUR ---
PT BACK FROM PROCEDURE. ALERT AND ORIENTED X4, BALANCE IS OFF. PT VERBALIZED UNDERSTANDING OF USE OF CALL LIGHT FOR ASSISTANCE TO AMBULATE. PT STATES HE WANTS EAT SOLID FOOD.
[2024-08-26 19:18] VITALS: BP 141/92
--- NOTE | 2024-08-26 19:32 | NUR ---
SPOKE WITH DR. CHEN ON CELL PHONE. OK TO ORDER REGULAR DIET FOR PATIENT. ORDER UPDATED
[2024-08-27 02:38] VITALS: BP 110/68
[2024-08-27] MEDS ORDERED: OxyCODONE HCL 5 MG TAB PO PRN (06:10)
--- NOTE | 2024-08-27 06:27 | NUR ---
NO ACUTE CHANGES, PT STABLE. VSS, TELE SR 69 BPM, INDEPENDENT IN ROOM, A&OX4. PT REPORTS PAIN IN NECK, PRN MEDS ADMINISTERED. NO BOWEL MOVEMENTS DURING SHIFT AT TIME OF NOTE.
[2024-08-27 07:57] VITALS: BP 92/58
[2024-08-27] MEDS ORDERED: NS 1,000 ML IV SCH (08:30)
[2024-08-27 16:28] VITALS: BP 110/57
--- NOTE | 2024-08-27 17:01 | NUR ---
SHIFT SUMMARY: PT AOX4 AND INDEPENDENT WALKING AROUND. TOOK MEDS NO ISSUE. SURGICALLY CLEARED TO GO HOME BUT HOSPITALIST WANTS TO HOLD HIM OVER NIGHT DUE TO LOW BLOOD PRESSURE. EATS ALL HIS MEALS AND FREQUENTLY ASKING FOR SNACKS. PT GOOD MOOD AND AFFECT. PARTICIPATING IN CARE AND AMBULATING WELL. PT IN CHAIR WATCHING TV AND RESTING. CALL LIGHT IN REACH, CONTINUING CARE.
--- NOTE | 2024-08-27 18:20 | NUR ---
THIS CARCASS WASHER HAS REVIEWED AND AGREES WITH ALL NOTES AND ASSESSMENTS BY TYRESE MOYER.
[2024-08-27 19:42] VITALS: BP 134/66
[2024-08-28 04:08] VITALS: BP 159/88
--- NOTE | 2024-08-28 06:54 | NUR ---
NO ACUTE CHANGES DURING SHIFT. IV SITE REMOVED DUE TO LEAKING. PAIN MANAGED WITH PRN PAIN MEDS
[2024-08-28 07:47] VITALS: BP 126/72
--- NOTE | 2024-08-28 13:32 | NUR ---
DISCHARGE SUMMARY: PT LEFT BY WHEELCHAIR AT 1325. PT AOX4 BREATHING UNLABORED. NO SYMPTOMS OF CHEST PAIN. PICKED UP BY FRIEND TO TAKE HIM HOME. AMBULATED INTO AND OUT OF WHEELCHAIR INTO CAR. HAS ALL PATIENT BELONGINGS. EDUCATION AND NEW MEDS DISCUSSED AND UNDERSTOOD BY PATIENT MEDS SENT TO [facility]. PT LEFT IN GOOD MOOD AND AFFECT.
--- NOTE | 2024-08-28 13:40 | NUR ---
THIS MOLDING MANAGER HAS REVIEWED AND AGREES WITH ALL NOTES AND ASSESSMENTS BY TYRESE MOYER.
== END 2024-08-28 13:29 | disposition home or self-care (01) | DRG 379 ==
LOC: ER 09:32 → MEDS 12:32
PROVIDERS: Emergency Medicine; Internal Medicine; Surgery; ADMIT Internal Medicine
PROC: 0DBP8ZX Excision of Rectum, Via Natural or Artificial Opening Endoscopic, Diagnostic (ICD-10-PCS; principal; 2024-08-26 16:30)
DX: K62.5 Hemorrhage of anus and rectum (principal); I48.0 Paroxysmal atrial fibrillation; F32.9 Major depressive disorder, single episode, unspecified; B18.2 Chronic viral hepatitis C; R63.4 Abnormal weight loss; F15.10 Other stimulant abuse, uncomplicated; F43.12 Post-traumatic stress disorder, chronic; I95.9 Hypotension, unspecified; J44.9 Chronic obstructive pulmonary disease, unspecified; I10 Essential (primary) hypertension; Z98.890 Other specified postprocedural states; F17.210 Nicotine dependence, cigarettes, uncomplicated; Z88.2 Allergy status to sulfonamides; Z88.8 Allergy status to other drugs, medicaments and biological substances; Z88.5 Allergy status to narcotic agent; Z91.013 Allergy to seafood; Z79.899 Other long term (current) drug therapy; Z68.25 Body mass index [BMI] 25.0-25.9, adult
CPT/HCPCS: 36415; 74177; 80053; 80069; 81003; 83735; 85014; 85018; 85025; 85027; 85610; 85651; 85730; 86140; 86850; 86900; 86901; 96361; 96374; 99285-25; A9270; J2405; J2470; J2704; J7030; J7120; Q9967

== ENCOUNTER 2025-03-23 04:55 | Emergency (ER) | payer MEDICARE ==
[~2025-03-23] VITALS: Ht 188 cm; Wt 106.6 kg
[~2025-03-23 04:55] MED LIST changes: +ABILIFY MYCITE10 M2 PO; +ALFU10 PO; +GABA100 PO; +MEGE40T PO; +MIRT15 PO; +SIME80CH PO; +VENLAFAXINE HCL75 M1 PO
[2025-03-23 05:43] LABS: BASOPHILS ABSOLUTE AUTO 0.03 K/mm3 (0.00-0.23); BASOPHILS PERCENT AUTO 1 % (0-2); EOSINOPHILS ABSOLUTE AUTO 0.08 K/mm3 (0.00-0.68); EOSINOPHILS PERCENT AUTO 1 % (0-6); Hematocrit 41.9 % (37.0-53.0); Hemoglobin 14.2 g/dL (13.5-17.5); IMMATURE GRAN ABSOLUTE AUTO 0.02 K/mm3 (0.00-0.10); IMMATURE GRAN PERCENT AUTO 0 % (0-1); LYMPHOCYTES ABSOLUTE AUTO 0.72 K/mm3 (0.84-5.20); LYMPHOCYTES PERCENT AUTO 13 % (21-46); MONOCYTES ABSOLUTE AUTO 0.58 K/mm3 (0.16-1.47); MONOCYTES PERCENT AUTO 10 % (4-13); Mean Corpuscular HGB 32.2 pg (26.0-34.0); Mean Corpuscular HGB Conc 33.9 g/dL (31.5-36.5); Mean Corpuscular Volume 95 fL (80-100); Mean Platelet Volume 10.7 fL (9.1-12.4); NEUTROPHILS ABSOLUTE AUTO 4.23 K/mm3 (1.96-9.15); NEUTROPHILS PERCENT AUTO 75 % (41-73); Platelet Count 195 K/mm3 (150-400); RDW Coefficient Variation 13.6 % (11.7-14.2); RDW Standard Deviation 47.5 fL (35.1-46.3); Red Blood Cell Count 4.41 M/mm3 (4.30-5.90); White Blood Cell Count 5.66 K/mm3 (4.00-11.30)
[2025-03-23 05:59] LABS: International Normalized Ratio 1.06; Prothrombin Time Results 11.3 Sec (9.7-11.5)
[2025-03-23 06:07] LABS: Albumin, Blood 3.7 g/dL (3.4-5.0); Albumin/Globulin Ratio 1.1 (0.8-1.8); Bilirubin, Total 0.4 mg/dL (0.1-1.0); Bun/Creatinine Ratio 25.5 (12.0-20.0); Calcium, Blood 8.9 mg/dL (8.5-10.1); Creatinine, Blood 0.86 mg/dL (0.60-1.20); Globulin, Blood 3.4 g/dL (2.2-4.0); Total Protein, Blood 7.1 g/dL (6.4-8.2)
[2025-03-23] MEDS ORDERED: OxyCODONE HCL 5 MG TAB PO ONE (06:20)
[2025-03-23] MEDS ORDERED: Roxicodone5 MG PO (06:24)
[2025-03-23 06:35] VITALS: BP 112/73
== END 2025-03-23 06:34 | disposition home or self-care (01) ==
LOC: ER 04:55
PROVIDERS: Student in an Organized Health Care Education/Training Program
DX: S09.90XA Unspecified injury of head, initial encounter (principal); S42.001A Fracture of unspecified part of right clavicle, initial encounter for closed fracture; J44.9 Chronic obstructive pulmonary disease, unspecified; I10 Essential (primary) hypertension; I48.91 Unspecified atrial fibrillation; F17.210 Nicotine dependence, cigarettes, uncomplicated; W01.0XXA Fall on same level from slipping, tripping and stumbling without subsequent striking against object, initial encounter; Z79.899 Other long term (current) drug therapy; Z88.5 Allergy status to narcotic agent; Z88.1 Allergy status to other antibiotic agents; Z88.8 Allergy status to other drugs, medicaments and biological substances
CPT/HCPCS: 70450; 73030; 80053; 85025; 85610; 99284-25; A9270